=== PATIENT | female | born 1965 | race Caucasian/White ===

== ENCOUNTER 2017-09-05 20:05 | Observation (INO) | payer BC ==
--- NOTE | 2017-09-05 20:16 | Emergency Department Record ---
History of Present Illness - General Chief Complaint: Palpitations Stated Complaint: FLUTTERING HEAR Time Seen by Provider: 09/05/17 20:09 Source: Patient, Family Mode of Arrival: Ambulatory Limitations: No limitations - History of Present Illness Initial Comments: 52 yo female presents with a feeling of palpitations for the last 3 hours. She reports she has had similar palpitations for many years. She states the symptoms are usually brief. No syncope, dizziness, chest pain, shortness of breath. The onset today was while driving. The last time she had brief symptoms was about a week. The symptoms occur about weekly over the last several years. She states she has never had an EKG. No CAD. No other changes in her recent health. MD Complaint: Palpitations -: Hour(s) (3) Context: Occurred during rest (Driving) Arrythmia History: Other (No known history of diagnosis) Associated Symptoms: Anxiety - Related Data Allergies Allergy/AdvReac Type Severity Reaction Status Date / Time No Known Drug Allergies Allergy Verified 04/06/15 16:19 Review of Systems Constitutional: Denies: Chills, Fever, Malaise, Weakness Eyes: Denies: Eye discharge ENT: Denies: Congestion, Throat pain Respiratory: Denies: Cough, Dyspnea, Hemoptysis, Stridor, Wheezes Cardiovascular: Reports: Palpitations. Denies: Chest pain, Dyspnea on exertion , Edema, Syncope Endocrine: Denies: Fatigue, Polydipsia, Polyuria Gastrointestinal: Denies: Abdominal pain, Diarrhea, Nausea, Vomiting Genitourinary: Denies: Dysuria, Urgency Musculoskeletal: Denies: Arthralgia, Back pain, Myalgia, Neck pain Skin: Denies: Bruising, Change in color, Rash Neurological: Denies: Headache, Numbness, Tingling, Weakness Psychiatric: Denies: Anxiety Hematological/Lymphatic: Denies: Blood Clots, Easy bleeding, Easy bruising, Swollen glands Past Medical History - SOCIAL HISTORY Smoking Status: Never smoker - RESPIRATORY Hx Respiratory Disorders: No - CARDIOVASCULAR Hx Cardio Disorders: No - NEURO Hx Neuro Disorders: No - GI Hx GI Disorders: No - Hx Genitourinary Disorders: No - ENDOCRINE Hx Endocrine Disorders: No - MUSCULOSKELETAL Hx Musculoskeletal Disorders: Yes Hx Arthritis: Yes - PSYCH Hx Psych Problems: No - HEMATOLOGY/ONCOLOGY Hx Hematology/Oncology Disorders: No Family Medical History Hx Cancer: Father Hx Heart Disease: Mother Physical Exam - General General Appearance: Alert, Oriented x3, Cooperative, No acute distress, Other ( Well appearing, appears calm and relaxed, conversational) Limitations: No limitations - Head Head exam: Atraumatic, Normocephalic, Normal inspection - Eye Eye exam: Normal appearance, PERRL, EOMI. negative: Conjunctival injection, Scleral icterus - ENT ENT exam: Normal exam, Mucous membranes moist Ear exam: Normal external inspection Nasal Exam: Normal inspection Mouth exam: Normal external inspection Teeth exam: Normal inspection Throat exam: Normal inspection. negative: Tonsillar erythema, Tonsillar exudate - Neck Neck exam: Normal inspection, Full ROM. negative: Tenderness, Thyromegaly - Respiratory Respiratory exam: Normal lung sounds bilaterally. negative: Respiratory distress - Cardiovascular Cardiovascular Exam: Regular rate, Normal rhythm, Normal heart sounds, Other ( No ectopy on examination.). negative: Diastolic murmur, Irregular rhythm, Systolic murmur, Tachycardia Peripheral Pulses: 2+: Radial (R), Radial (L) - GI/Abdominal GI/Abdominal exam: Soft - Rectal Rectal exam: Deferred - exam: Deferred - Extremities Extremities exam: Normal inspection. negative: Pedal edema, Tenderness - Back Back exam: Reports: Normal inspection - Neurological Neurological exam: Alert, Normal gait, Oriented X3 - Psychiatric Psychiatric exam: Normal affect, Normal mood. negative: Anxious - Skin Skin exam: Dry, Intact, Normal color, Warm Course - Reevaluation(s) Reevaluation #1: EKG 20:09 sinus tachycardia, no ectopy, intervals Qtc 470, Qt 355, axis leftward , ST no acute changes. No ischemic changes, No WPW. No old. 09/05/17 20:16 09/05/17 20:31 Occasional, isolated premature beat noted on the monitor. HR 92. 09/05/17 20:35 No acute changes in the CBC 09/05/17 20:56 EKG #2 NSR rate 95, intervals normal, axis leftward, PVC every 4-5 beats, ST no acute changes. 09/05/17 21:10 Given her symptoms she will be placed in OBV with serial enzymes I SW Dr Figueroa for the admission. Cardiology will be consulted. Medical Decision Making - Lab Data Result diagrams: 09/05/17 20:15 09/05/17 20:15 Disposition Disposition: Admit Clinical Impression: Heart palpitations, Premature ventricular beats, Hypokalemia Disposition: Still a Patient at [facility] Decision to Admit: Admit from ER Decision to Admit Date: 09/05/17 Decision to Admit Time: 21:04 Condition: (2) Stable Time of Disposition: 01:15 Quality - Quality Measures Quality Measures: N/A - Blood Pressure Screening Does Patient Have Any of the Following: No Blood Pressure Classification: Pre-Hypertensive BP Reading Systolic Measurement: 158 Diastolic Measurement: 87 Screening for High Blood Pressure: < Pre-Hypertensive BP, F/U Documented > [ G8950] Pre-Hypertensive Follow-up Interventions: Referral to alternative/primary care provider.
[2017-09-05 20:31] LABS: BASO % 0.2 % (0-6); EOS % 1.3 % (0-6); GRAN % 56.2 % (47-80); HEMATOCRIT 36.6 % (35.0-47.0); HEMOGLOBIN 11.8 gm/dl (11.6-16.0); LYMPH % 31.8 % (16-45); MEAN CELL VOLUME 89.1 fl (81-97); MEAN CORPUSCULAR HEMOGLOBIN 28.7 pg (27-33); MEAN CORPUSCULAR HGB CONC 32.2 g/dl (32-36); MEAN PLATELET VOLUME 10.1 fl (7.4-10.4); MONO % 10.5 % (0-9); PLATELET COUNT 245 K/uL (130-400); RED BLOOD COUNT 4.11 M/uL (3.80-5.40); RED CELL DISTRIBUTION WIDTH 13.8 % (11.5-14.5); WHITE BLOOD COUNT W/O DIFF 6.4 K/uL (4.2-12.2)
[2017-09-05 20:40] LABS: INR 0.95; PARTIAL THROMBOPLASTIN TIME 25.4 SECONDS (24.5-39.1); PROTHROMBIN TIME (PATIENT) 10.3 SECONDS (9.5-12.1)
[2017-09-05 20:44] LABS: BLOOD UREA NITROGEN 15 mg/dL (6-20); CREATININE 0.6 mg/dL (0.5-0.9); EST GLOMERULAR FILTRATION RATE > 60 mL/min; GLUCOSE,RANDOM 121 mg/dL (74-109)
[2017-09-05] MEDS ORDERED: POTASSIUM CHLORIDE 20 MEQ TABLET PO ONE (20:56)
[2017-09-05 20:58] LABS: THYROID STIMULATING HORMONE 1.98 uIU/mL (0.270-4.20)
[2017-09-05] MEDS ORDERED: METOPROLOL TART 5 MG/5 ML VIAL IV ONE (21:04)
[2017-09-05] MEDS ORDERED: ASPIRIN 325 MG TAB ENTERIC-COATED PO SCH (21:32)
[2017-09-05] MEDS ORDERED: POTASSIUM CHL 20MEQ IN 1L NS 20 MEQ/1,000 ML BAG IV ONE (21:32)
[2017-09-05] MEDS ORDERED: ACETAMINOPHEN 500 MG TABLET PO PRN (21:32)
--- NOTE | 2017-09-06 06:30 | History & Physical ---
History of Present Illness - Date of Service Date of Service for History & Physical: 09/06/17 - History of Present Illness Admitting Diagnosis: Palpitations History of Present Illness: Mrs. Kelly is a 52 y/o female who presents with intermittent palpitations yesterday afternoon while driving. The patient had a similar episode last week but reports infrequent episodes of palpitations weekly over the past several years. She denies, chest pain, shortness of breath, nausea, vomiting or headaches. The patient has no previous history of coronary artery disease, thyroid disease or hypertension. On arrival to the ED the patient was noted to be mildly tachycardic and with isolated runs of PVCs 4-5 secs on monitor. Initial labs are not suggestive of any metabolic disturbance and ECG shows a normal sinus, no acute ST-T wave abnormalities with left axis deviation. The patient is admitted for observation and consultation with cardiology regarding symptoms. Travel Screening - Travel/Exposure Within Last 30 Days Have you traveled within the last 30 days?: No - Travel/Exposure Within Last Year Have you traveled outside the [place] in the last year?: No - Additonal Travel Details Have you been exposed to anyone with a communicable illness?: No - Travel Symptoms Symptom Screening: None Review of Systems Constitutional: Denies: Chills, Fever, Malaise, Weakness Eyes: Denies: Eye discharge ENT: Denies: Congestion, Throat pain Respiratory: Denies: Cough, Dyspnea, Hemoptysis, Stridor, Wheezes Cardiovascular: Reports: Palpitations. Denies: Chest pain, Dyspnea on exertion , Edema, Syncope Endocrine: Denies: Fatigue, Polydipsia, Polyuria Gastrointestinal: Denies: Abdominal pain, Diarrhea, Nausea, Vomiting Genitourinary: Denies: Dysuria, Urgency Musculoskeletal: Denies: Arthralgia, Back pain, Myalgia, Neck pain Skin: Denies: Bruising, Change in color, Rash Neurological: Denies: Headache, Numbness, Tingling, Weakness Psychiatric: Denies: Anxiety Hematological/Lymphatic: Denies: Blood Clots, Easy bleeding, Easy bruising, Swollen glands Past Medical History - SOCIAL HISTORY Smoking Status: Never smoker - RESPIRATORY Hx Respiratory Disorders: No - CARDIOVASCULAR Hx Cardio Disorders: No - NEURO Hx Neuro Disorders: No - GI Hx GI Disorders: No - Hx Genitourinary Disorders: No - ENDOCRINE Hx Endocrine Disorders: No - MUSCULOSKELETAL Hx Musculoskeletal Disorders: Yes Hx Arthritis: Yes - PSYCH Hx Psych Problems: No - HEMATOLOGY/ONCOLOGY Hx Hematology/Oncology Disorders: No Family Medical History Hx Cancer: Father Hx Heart Disease: Mother H&P Meds/Allergies - Allergies Allergies: Allergies Allergy/AdvReac Type Severity Reaction Status Date / Time No Known Drug Allergies Allergy Verified 04/06/15 16:19 - Active Medications Active Medications: Current Medications Acetaminophen (Tylenol 500mg Tab) 500 mg PO Q6H PRN PRN Reason: PAIN/TEMP Aspirin (Ecotrin (Ec)) 325 mg PO DAILY KEIRY Potassium Chloride/Sodium Chloride ( Potassium Chl 20meq/) 20 meq in 1,000 mls @ 83 mls/hr IV NOW ONE Stop: 09/06/17 09:34 Last Admin: 09/05/17 22:15 Dose: 83 mls/hr Physical Exam - Vital Signs Vital Signs: Vital Signs - Last 24 Hrs Temp Pulse Resp BP Pulse Ox 09/05/17 22:46 98.9 F 84 18 146/80 98 09/05/17 22:00 77 18 - General General Appearance: Alert, Oriented x3, Cooperative, No acute distress, Other ( Well appearing, appears calm and relaxed, conversational) Limitations: No limitations - Head Head exam: Atraumatic, Normocephalic, Normal inspection - Eye Eye exam: Normal appearance, PERRL, EOMI. negative: Conjunctival injection, Scleral icterus - ENT ENT exam: Normal exam, Mucous membranes moist Ear exam: Normal external inspection Nasal Exam: Normal inspection Mouth exam: Normal external inspection Teeth exam: Normal inspection Throat exam: Normal inspection. negative: Tonsillar erythema, Tonsillar exudate - Neck Neck exam: Normal inspection, Full ROM. negative: Tenderness, Thyromegaly - Respiratory Respiratory exam: Normal lung sounds bilaterally. negative: Respiratory distress - Cardiovascular Cardiovascular Exam: Regular rate, Normal rhythm, Normal heart sounds, Other ( No ectopy on examination.). negative: Diastolic murmur, Irregular rhythm, Systolic murmur, Tachycardia Peripheral Pulses: 2+: Radial (R), Radial (L), Dorsalis Pedis (R), Dorsalis Pedis (L) - GI/Abdominal GI/Abdominal exam: Soft - Rectal Rectal exam: Deferred - exam: Deferred - Extremities Extremities exam: Normal inspection. negative: Pedal edema, Tenderness - Back Back exam: Reports: Normal inspection - Neurological Neurological exam: Alert, Normal gait, Oriented X3 - Psychiatric Psychiatric exam: Normal affect, Normal mood. negative: Anxious - Skin Skin exam: Dry, Intact, Normal color, Warm Results - Labs Result Diagrams: 09/05/17 20:15 09/06/17 06:08 VTE H&P Assessment - Risk for VTE Risk for VTE: No Risk Level: Very Low Risk Assessment Date: 09/06/17 Risk Assessment Time: 16:27 VTE Orders Placed or Will Be Placed: No VTE Reason for No Prophylaxis: Not Indicated Plan - Detailed Diagnosis and Plan (1) Premature ventricular beats Current Visit: Yes Status: Acute Base Code: I49.3 - VENTRICULAR PREMATURE DEPOLARIZATION Comment: - isolated runs of premature ventricular tachycardia - ECG: no acute changes, Qtc 470, NSR - given one time dose of Metoprolol 5mg IV and ASA 325mg - cont cardiac monitoring, cardiology consult pending (2) Hypokalemia Current Visit: Yes Status: Acute Base Code: E87.6 - HYPOKALEMIA Comment: - K+ 3.4 - repleted w/ 40 meq PO, IV 20meq in IVF (3) Anxiety Current Visit: Yes Status: Acute Base Code: F41.9 - ANXIETY DISORDER, UNSPECIFIED Comment: -discussed the need for relaxation techniques. - outpatient follow up with and possible medications if persistent symptoms. (4) Full code status Current Visit: Yes Status: Acute Base Code: Z78.9 - OTHER SPECIFIED HEALTH STATUS Comment: -FULL CODE - Disposition Likely D/C this morning after Cardiology evaluation.
[2017-09-06 06:44] LABS: BLOOD UREA NITROGEN 10 mg/dL (6-20); CREATININE 0.5 mg/dL (0.5-0.9); EST GLOMERULAR FILTRATION RATE > 60 mL/min; GLUCOSE,RANDOM 95 mg/dL (74-109)
[2017-09-06] MEDS ORDERED: ASPIRIN 325 MG TAB ENTERIC-COATED PO SCH (10:00)
[2017-09-06] MEDS ORDERED: IBUPROFEN 400 MG TABLET PO PRN (15:24)
--- NOTE | 2017-09-06 16:40 | Discharge Summary ---
Providers Discharge Summary Date: 09/06/17 Date of admission: 09/05/17 21:21 Attending physician: Sunil Nash Consults: Cardiology Physical Exam - Vital Signs Vital Signs: Vital Signs - Last 24 Hrs Temp Pulse Pulse Resp BP Pulse Ox 09/06/17 09:00 88 18 09/06/17 07:40 97.7 F 74 18 137/87 97 09/05/17 22:46 98.9 F 84 18 146/80 98 09/05/17 22:00 77 18 - General General Appearance: Alert, Oriented x3, Cooperative, No acute distress, Other ( Well appearing, appears calm and relaxed, conversational) Limitations: No limitations - Head Head exam: Atraumatic, Normocephalic, Normal inspection - Eye Eye exam: Normal appearance, PERRL, EOMI. negative: Conjunctival injection, Scleral icterus - ENT ENT exam: Normal exam, Mucous membranes moist Ear exam: Normal external inspection Nasal Exam: Normal inspection Mouth exam: Normal external inspection Teeth exam: Normal inspection Throat exam: Normal inspection. negative: Tonsillar erythema, Tonsillar exudate - Neck Neck exam: Normal inspection, Full ROM. negative: Tenderness, Thyromegaly - Respiratory Respiratory exam: Normal lung sounds bilaterally. negative: Respiratory distress - Cardiovascular Cardiovascular Exam: Regular rate, Normal rhythm, Normal heart sounds, Other ( No ectopy on examination.). negative: Diastolic murmur, Irregular rhythm, Systolic murmur, Tachycardia Peripheral Pulses: 2+: Radial (R), Radial (L), Dorsalis Pedis (R), Dorsalis Pedis (L) - GI/Abdominal GI/Abdominal exam: Soft - Rectal Rectal exam: Deferred - exam: Deferred - Extremities Extremities exam: Normal inspection. negative: Pedal edema, Tenderness - Back Back exam: Reports: Normal inspection - Neurological Neurological exam: Alert, Normal gait, Oriented X3 - Psychiatric Psychiatric exam: Normal affect, Normal mood. negative: Anxious - Skin Skin exam: Dry, Intact, Normal color, Warm Hospitalization - Hospitalization Admission Diagnosis: Palpitations - Problem List/Discharge Diagnosis (1) Premature ventricular beats Current Visit: Yes Status: Acute Base Code: I49.3 - VENTRICULAR PREMATURE DEPOLARIZATION Comment: - isolated runs of premature ventricular tachycardia - ECG: no acute changes, Qtc 470, NSR - given one time dose of Metoprolol 5mg IV and ASA 325mg - cont cardiac monitoring, cardiology consult pending (2) Hypokalemia Current Visit: Yes Status: Acute Base Code: E87.6 - HYPOKALEMIA Comment: - K+ 3.4 - repleted w/ 40 meq PO, IV 20meq in IVF (3) Anxiety Current Visit: Yes Status: Acute Base Code: F41.9 - ANXIETY DISORDER, UNSPECIFIED Comment: -discussed the need for relaxation techniques. - outpatient follow up with and possible medications if persistent symptoms. (4) Full code status Current Visit: Yes Status: Acute Base Code: Z78.9 - OTHER SPECIFIED HEALTH STATUS Comment: -FULL CODE - Disposition Likely D/C this morning after Cardiology evaluation. - Hospitalization Course Disposition: Home, Self-Care Hospital Course: Mrs. Kelly is a 52 y/o female who presents with intermittent palpitations yesterday afternoon while driving. The patient had a similar episode last week but reports infrequent episodes of palpitations weekly over the past several years. She denies, chest pain, shortness of breath, nausea, vomiting or headaches. The patient has no previous history of coronary artery disease, thyroid disease or hypertension. On arrival to the ED the patient was noted to be mildly tachycardic and with isolated runs of PVCs 4-5 secs on monitor. Initial labs are not suggestive of any metabolic disturbance and ECG shows a normal sinus, no acute ST-T wave abnormalities with left axis deviation. The patient is admitted for observation and consultation with cardiology regarding symptoms. The patient was monitored on telemetry throughout the day with no more runs of PVCs. 2D echo showed a preserved EF of 70% and no structural abnormalities. The patient was discharged home in stable condition with follow up in the [facility] and Cardiology thereafter. Condition at Discharge: (1) Good Discharge Plan - Discharge Instructions Activity at Discharge: Resume Usual Activities As Tolerated Diet at Discharge: Regular Diet Additional Instructions: Rest and stay well hydrated Return if worse or any new concerns You are being referred to the [facility] Follow up with [facility] within 1- 2 week Quality Measures - Quality Measures Quality Measures: Documentation of Current Medications in Medical Record, Screening for High Blood Pressure and F/U Documented - Current Medications Quality Measure: Measure #130: Documentation of Current Medications Documentation of Current Medications: <Current Medications Documented/Reviewed> [G8427] - Blood Pressure Screening Quality Measure: Screening for High Blood Pressure and Follow-Up Documented Does Patient Have Any of the Following: No Blood Pressure Classification: Pre-Hypertensive BP Reading Systolic Measurement: 158 Diastolic Measurement: 87 Screening for High Blood Pressure: < First Hypertensive BP, F/U Documented > [ G8950] First Hypertensive Follow-up Interventions: Follow-up with rescreen GT 1 day and LT 4 weeks., Lifestyle modifications. Lifestyle Modification: Weight Reduction, Dietary Approaches to Stop Hypertension (DASH) Eating Plan, Dietary Sodium Restriction - Elder Abuse Suspicion Index EASI Reference Information: Lucien CHACKO, Delio Fowler, Yaritza Serrano, Lia Garrido.Development and validation of a tool to assist physicians identification of elder abuse: The Elder Abuse Suspicion Index (EASI ). Journal of Elder Abuse and Neglect, 2008; 20 (3): 276-300.
--- NOTE | 2017-09-06 20:49 | Medical Records Consult ---
DATE OF CONSULTATION: 09/06/17 INDICATION: PALPITATIONS. PACs. HISTORY: Michaela Kelly is a pleasant 52-year-old female who states she has had on and off palpitations for years. She has never had a cardiology workup. She states that usually when her palpitations occur, if she coughs or bears down the symptoms will resolve. She was driving home last night. Her symptoms occurred while driving. She had no chest pain or shortness of breath. She went home and thought they would resolve with some coughing but they persisted, so she presented to the Emergency Department. Her EKG just showed a sinus tachycardia, questionable left atrial enlargement. She apparently has had some PACs on telemetry. Reviewing telemetry since she has been in the hospital, there is quite a bit of artifact and maybe some PACs, PVCs. ALLERGIES: NONE. MEDICATIONS, HOME: None. SOCIAL HISTORY: No tobacco. No illicit drugs. FAMILY HISTORY: Positive for heart disease in mother, cancer in father. REVIEW OF SYSTEMS: GENERAL: Denies fevers, chills, night sweats, weakness. HEENT: No acute hearing/ vision changes. CARDIOVASCULAR: As above. Palpitations. Denies chest pain, shortness of breath, syncope. PULMONARY: No cough, hemoptysis. GI: No nausea, vomiting. No tarry or bloody stools. : No dysuria or hematuria. ENDOCRINE: Denies diabetes history. No thyroid history reported. NEUROLOGIC: Denies stroke , seizure history. PHYSICAL EXAMINATION: Vital Signs: Temperature 98.9. Pulse 84. Regular blood pressure of 146/80. Respirations 18 Pulse ox 98% on room air. GENERAL: Alert, in no apparent distress. HEENT: Normocephalic, atraumatic. NECK: Supple. No JVD. No carotid bruits. CARDIOVASCULAR: Regular rhythm. No murmurs, rubs, gallops. PULMONARY: Clear to auscultation. No accessory muscle used. ABDOMEN: Soft. Nontender. Positive bowel sounds. Moderate obesity. EXTREMITIES: No edema. Radial and pedal pulses are intact. NEUROLOGIC: Speech is clear. She answers all questions appropriately. LABORATORY: Potassium was 3.4 on admission. Repeat after potassium supplement was 4.1. Sodium 143. BUN 10. Creatinine 0.9. White blood cells 6.4. Hemoglobin 11.8. Hematocrit 36.8. Platelets 245. EKG: Sinus tachycardia. Questionable left atrial enlargement. ASSESSMENT/PLAN: PALPITATIONS, ONGOING FOR YEARS: This certainly has some characteristics suggestive of SVT, given that she can sometimes break her symptoms with a cough. Would recommend an echocardiogram, checking her magnesium level giving her hypokalemia, thyroid studies should be performed, if not done by her primary care physician in the last six months. We'll check an echocardiogram and would recommend a 30-day event recorder. If her echocardiogram is unremarkable, she could have her event recorder as an outpatient. Obviously, if she has a diminished ejection fraction or any significantly abnormal findings on her echocardiogram, she may need to be transferred to [facility]. But again, if her echocardiogram is unremarkable and there are no further issues during her hospital stay, I would recommend checking the lab work, as above, as well as 30-day event recorder as an outpatient. JOB NUMBER: [id number] MTDD
== END 2017-09-06 17:40 | disposition home or self-care (01) ==
LOC: ER 20:05 → MEDSURG 21:21
PROVIDERS: ADMIT Internal Medicine; ATTEND Internal Medicine
DX: I49.3 Ventricular premature depolarization (principal); E87.6 Hypokalemia; F41.9 Anxiety disorder, unspecified
CPT/HCPCS: 99285 ×2; 83735; 85025; 85730; 85610; 80048 ×2; 84443; 84484 ×2; 93005 ×2; 93010 ×2; G0378 ×2; 93041; 99236